=== PATIENT | female | born 1980 | race Caucasian/White ===

== ENCOUNTER 2017-02-15 01:42 | Emergency (ER) | payer OTHER ==
--- NOTE | 2017-02-15 02:32 | PDOC ---
History of Present Illness - General Chief Complaint: Bite Stated Complaint: BITE Time Seen by Provider: 02/15/17 02:22 History Source: Patient - History of Present Illness Initial Comments: 02/15/17 02:37 36 year old female with insect bite to right shoulder at 10 pm prior to arrivakl. patient reports feeling itchy at times. + redness minimal tenderness no Pmhx Past History - Travel Traveled outside of the country in the last 30 days: Yes Close contact w/someone who was outside of country & ill: No - Past Medical History Allergies/Adverse Reactions: Allergies Allergy/AdvReac Type Severity Reaction Status Date / Time No Known Drug Allergies Allergy Verified 02/15/17 02:18 Home Medications: Ambulatory Orders Ibuprofen [Motrin -] 400 mg PO PRN PRN 08/28/14 Hydrocortisone 1% Ointment [Hytone 1% Ointment -] 1 applic TP BID #1 tube Anemia: No Asthma: No Cancer: No Cardiac Disorders: No CVA: No COPD: No CHF: No Dementia: No Diabetes: No GI Disorders: No Disorders: No HTN: No Hypercholesterolemia: No Liver Disease: No Suicide Attempt (Hx): No Seizures: No Thyroid Disease: No - Surgical History Abdominal Surgery: No Appendectomy: No Cardiac Surgery: No Cholecystectomy: No Lung Surgery: No Neurologic Surgery: No Orthopedic Surgery: No - Psycho/Social/Smoking Cessation Hx Suicidal Ideation: No Smoking Status: No Smoking History: Never smoked Have you smoked in the past 12 months: No Number of Cigarettes Smoked Daily: 0 Information on smoking cessation initiated: No Hx Alcohol Use: No Drug/Substance Use Hx: No Substance Use Type: None Hx Substance Use Treatment: No Review of Systems - Review of Systems Able to Perform ROS?: Yes Is the patient limited Hebrew proficient: No Integumentary: Yes: Other (insect bite) *Physical Exam - Vital Signs Last Vital Signs Temp Pulse Resp BP Pulse Ox 98.6 F 70 14 114/79 100 02/15/17 02:20 02/15/17 02:20 02/15/17 02:20 02/15/17 02:20 02/15/17 02:20 - Physical Exam General Appearance: Yes: Appropriately Dressed Respiratory/Chest: negative: Chest Tender, Lungs Clear, Normal Breath Sounds, Respiratory Distress, Accessory Muscle Use, Labored Respiration, Rapid RR, Decreased Breath Sounds, Paradoxal Breathing, Crackles, Rales, Rhonchi, Stridor , Wheezing, Hyperresonant, Dullness, Plerual Rub, Other Extremity: positive: Normal Capillary Refill, Normal Inspection, Normal Range of Motion Integumentary: positive: Erythema (right shoulder) Neurologic: positive: Fully Oriented, Alert, Normal Mood/Affect Progress Note - Progress Note Progress Note: insect bite P: hydrocortisone *DC/Admit/Observation/Transfer Diagnosis at time of Disposition: Insect bite of right shoulder with local reaction Qualifiers: Encounter type: initial encounter Qualified Code(s): S40.261A - Insect bite ( nonvenomous) of right shoulder, initial encounter; W57.XXXA - Bitten or stung by nonvenomous insect and other nonvenomous arthropods, initial encounter - Discharge Dispostion Disposition: HOME - Prescriptions Prescriptions: Hydrocortisone 1% Ointment [Hytone 1% Ointment -] 1 applic TP BID #1 tube - Patient Instructions Printed Discharge Instructions: How to Care for an Insect Bite or Sting Additional Instructions: apply hydrocortisone cream as prescribe. look for signs of increased pain, redness, pus drainage. follow up with [facility] for a wound check
[2017-02-15 02:33] VITALS: BP 114/79; PULSE 70; TEMP 98.6; BMI 27.3
== END 2017-02-15 02:59 | disposition home or self-care (01) ==
LOC: JER 01:42
DX: S40.261A Insect bite (nonvenomous) of right shoulder, initial encounter (principal); L08.9 Local infection of the skin and subcutaneous tissue, unspecified; W57.XXXA Bitten or stung by nonvenomous insect and other nonvenomous arthropods, initial encounter; Y93.89 Activity, other specified; Y92.89 Other specified places as the place of occurrence of the external cause
CPT/HCPCS: 99281-25

== ENCOUNTER 2019-06-05 20:26 | Emergency (ER) | payer OTHER ==
[2019-06-05 21:16] VITALS: TEMP 98.2; BMI 29.2
--- NOTE | 2019-06-05 21:30 | PDOC ---
History of Present Illness - General Chief Complaint: Chest Pain Stated Complaint: CHEST PAIN Time Seen by Provider: 06/05/19 21:22 History Source: Patient Exam Limitations: No Limitations - History of Present Illness Initial Comments: Pt is a 38 yo F, with PMH of migraines, who is presenting via car from [facility] for concern of possible PE (elevated D-dimer). Pt states she had chest discomfort which woke her from sleep last night at 2 am. Pt thought it was reflux and took PO antacids with minimal relief. Pt states the pain is substernal, does not radiate, not associated with vomiting or diaphoresis, and is worsened with deep breaths and sitting forward. 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 Pt with no recent travel, surgery, or estrogen use. Pt denies any fevers/chills, headache, vision changes, cough, congestion, syncope, palpitations, SOB, nausea/vomiting, abdominal pain, urinary symptoms, diarrhea/ constipation, or leg swelling. Allergies: fluconazole PCP: Dr. Alas Social: Pt denies any cigarette, alcohol, or drug use. Pt denies any recent travel or sick contacts. Surgical: , hysterectomy (2010) Family: no relevant history. 06/06/19 04:51 06/06/19 04:58 Past History - Travel Traveled outside of the country in the last 30 days: No Close contact w/someone who was outside of country & ill: No - Past Medical History Allergies/Adverse Reactions: Allergies Allergy/AdvReac Type Severity Reaction Status Date / Time fluconazole [From Diflucan] Allergy Unknown Verified 06/05/19 21:17 Home Medications: Ambulatory Orders Ibuprofen [Motrin -] 400 mg PO PRN PRN 08/28/14 Hydrocortisone 1% Ointment [Hytone 1% Ointment -] 1 applic TP BID #1 tube Anemia: No Asthma: No Cancer: No Cardiac Disorders: No CVA: No COPD: No CHF: No Dementia: No Diabetes: No GI Disorders: No Disorders: No HTN: No Hypercholesterolemia: No Liver Disease: No Seizures: No Thyroid Disease: No - Surgical History Abdominal Surgery: No Appendectomy: No Cardiac Surgery: No Cholecystectomy: No Lung Surgery: No Neurologic Surgery: No Orthopedic Surgery: No - Immunization History Immunization Up to Date: Yes - Psycho Social/Smoking Cessation Hx Smoking Status: No Smoking History: Never smoked Have you smoked in the past 12 months: No Number of Cigarettes Smoked Daily: 0 Information on smoking cessation initiated: No Hx Alcohol Use: No Drug/Substance Use Hx: No Substance Use Type: None Hx Substance Use Treatment: No Cardiac Specific PMH - Complaint Specific PMHX Abdominal Aortic Aneurysm: No Angina: No Cardiac Arrhythmia: No Cardiac Stent: No GERD: No Myocardial Infarction: No Pacemaker: No Pulmonary Embolus: No Valvular Heart Disease: No Peripheral Vascular Disease: No Review of Systems - Review of Systems Able to Perform ROS?: Yes Is the patient limited Persian proficient: No Constitutional: Yes: Weight Stable. No: Chills, Diaphoresis, Fever, Loss of Appetite, Malaise, Weakness HEENTM: No: Recent change in vision, Nose Congestion, Throat Pain, Throat Swelling, Difficulty Swallowing Respiratory: No: Cough, Orthopnea, Shortness of Breath, Wheezing, Hemoptysis Cardiac (ROS): Yes: Chest Pain. No: Edema, Irregular Heart Rate, Lightheadedness, Palpitations, Syncope, Chest Tightness ABD/GI: No: Constipated, Diarrhea, Nausea, Poor Appetite, Poor Fluid Intake, Vomiting : No: Burning, Dysuria, Frequency, Pain, Urgency Musculoskeletal: No: Back Pain, Muscle Pain, Muscle Weakness Integumentary: No: Rash Neurological: No: Headache, Numbness, Weakness, Unsteady Gait, Dizziness Psychiatric: No: Sleep Pattern Change, Change in Appetite Endocrine: No: Increased Urine, Change in Weight Hematologic/Lymphatic: No: Anemia, Blood Clots, Easy Bleeding, Easy Bruising All Other Systems: Reviewed and Negative *Physical Exam - Vital Signs Last Vital Signs Temp Pulse Resp BP Pulse Ox 98.2 F 79 16 111/66 98 06/06/19 00:59 06/06/19 00:59 06/06/19 00:59 06/06/19 00:59 06/06/19 00:59 - Physical Exam Comments: Vitals stable, pt afebrile. Pt in NAD, normal body habitus. Pt alert and oriented x3. 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 No midline spinal tenderness, step-offs, or crepitus. Head normocephalic, atraumatic. Eyes PERRLA, EOMI. Oropharynx without erythema or exudates, no LAD b/l. No nasal congestion. Hearing intact. Clear heart sounds, S1/S2, no JVD, b/l pedal edema, or heart murmur. Clear lung sounds, no respiratory distress, wheezes, crackles, or accessory muscle use. No reproducible chest wall TTP. No abdominal or CVA tenderness to palpation, no rebound, no guarding. Abdomen soft, non-distended, and with normoactive bowel sounds. Ecchymosis to b/l LE posterior calfs. No significant TTP or edema. Skin without jaundice or rash. 06/06/19 05:30 ED Treatment Course - LABORATORY CBC & Chemistry Diagram: 06/05/19 22:00 06/05/19 22:00 - ADDITIONAL ORDERS Additional order review: Laboratory Results 06/05/19 06/05/19 06/05/19 22:10 22:10 22:00 PT with INR INR PTT (Actin FS) D-Dimer 648 H Sodium Potassium Chloride Carbon Dioxide Anion Gap BUN Creatinine Est GFR (CKD-EPI)AfAm Est GFR (CKD-EPI)NonAf Random Glucose Calcium Total Bilirubin AST ALT Alkaline Phosphatase Troponin I Total Protein Albumin Serum , Qual Urine Color Yellow Urine Appearance Clear Urine pH 7.0 Ur Specific [place] 1.020 Urine Protein Negative Urine Glucose (UA) Negative Urine Ketones Negative Urine Blood Trace Urine Nitrite Negative Urine Bilirubin Negative Urine Urobilinogen 1.0 Ur Leukocyte Esterase Negative Urine WBC (Auto) 1 Urine RBC (Auto) 10 Urine Casts (Auto) 1 U Epithel Cells (Auto) 1.6 Urine Bacteria (Auto) 15.6 Urine HCG, Qual Negative 06/05/19 06/05/19 06/05/19 22:00 22:00 22:00 PT with INR 12.60 INR 1.07 PTT (Actin FS) D-Dimer Sodium Potassium Chloride Carbon Dioxide Anion Gap BUN Creatinine Est GFR (CKD-EPI)AfAm Est GFR (CKD-EPI)NonAf Random Glucose Calcium Total Bilirubin AST ALT Alkaline Phosphatase Troponin I < 0.02 Total Protein Albumin Serum , Qual Negative Urine Color Urine Appearance Urine pH Ur Specific [place] Urine Protein Urine Glucose (UA) Urine Ketones Urine Blood Urine Nitrite Urine Bilirubin Urine Urobilinogen Ur Leukocyte Esterase Urine WBC (Auto) Urine RBC (Auto) Urine Casts (Auto) U Epithel Cells (Auto) Urine Bacteria (Auto) Urine HCG, Qual 06/05/19 06/05/19 22:00 22:00 PT with INR INR PTT (Actin FS) 31.0 D-Dimer Sodium 138 Potassium 4.0 Chloride 108 H Carbon Dioxide 26 Anion Gap 4 L BUN 15.0 Creatinine 0.7 Est GFR (CKD-EPI)AfAm 127.39 Est GFR (CKD-EPI)NonAf 109.91 Random Glucose 99 Calcium 8.9 Total Bilirubin 0.7 AST 10 L ALT 18 Alkaline Phosphatase 45 Troponin I Total Protein 6.9 Albumin 4.0 Serum , Qual Urine Color Urine Appearance Urine pH Ur Specific [place] Urine Protein Urine Glucose (UA) Urine Ketones Urine Blood Urine Nitrite Urine Bilirubin Urine Urobilinogen Ur Leukocyte Esterase Urine WBC (Auto) Urine RBC (Auto) Urine Casts (Auto) U Epithel Cells (Auto) Urine Bacteria (Auto) Urine HCG, Qual 06/05/19 22:00 RBC 4.84 MCV 82.6 MCHC 34.2 RDW 13.8 MPV 8.8 Neutrophils % 65.5 D Lymphocytes % 23.6 D Monocytes % 9.6 Eosinophils % 0.5 Basophils % 0.8 - RADIOLOGY Radiology Studies Ordered: Category Date Time Status CHEST CTA [CT] Stat CT Scan 06/06/19 00:01 Taken - Medications Given in the ED: ED Medications Discontinued Medications Generic Name Dose Route Start Last Admin Trade Name Freq PRN Reason Stop Dose Admin Acetaminophen 1,000 mg 06/05/19 21:40 06/05/19 22:35 Ofirmev Injection - IVPB 06/05/19 21:41 1,000 mg ONCE ONE Administration Medical Decision Making - Medical Decision Making Pt was seen at bedside, also will be seen by attending Dr. Laguna. Pt presenting with pleuritic chest pain, with elevated D-dimer from . Will evaluate for ACS, infection, pericarditis, PE. Provided 1 g IV ofirmev for improvement of discomfort. Will continue to reassess pt and monitor for symptomatic improvement. ECG: NSR, intervals WNL (HR 89, FL 134, QRS 78, QTc 430). TWI III, aVF, with generally low voltage; no significant ST segment changes. No significant changes from prior ECG (08/28/2014). 06/06/19 05:33 CBC and CMP WNL Trop <.02 test negative Elevated D-dimer -- will obtain CTA to r/o PE CTA with no evidence of PE, aneursym. Pt can be d/c to home with PCP f/u. Pt states pain improved with tylenol. Strict return precautions with pt understanding. 06/06/19 05:36 Discharge - Discharge Information Problems reviewed: Yes Clinical Impression/Diagnosis: Chest pain Qualifiers: Chest pain type: pleurodynia Qualified Code(s): R07.81 - Pleurodynia Condition: Good Disposition: HOME - Admission No - Follow up/Referral Referrals: Inez Traore MD [Primary Care Provider] - - Patient Discharge Instructions Patient Printed Discharge Instructions: DI for Atypical Chest Pain Additional Instructions: You were seen in the ER today for chest pain. The results of your labs and imaging today did not show any signs of infection or clot. Please follow-up with your primary care doctor within 1-2 days to discuss your visit and make sure your symptoms have improved. Please return to the ER if you have any worsening pain, development of fevers or chills, loss of consciousness, inability to tolerate food or fluids, or any other concerns. You can take tylenol or motrin every 4-6 hours as needed for pain. - Post Discharge Activity
[2019-06-05] MEDS ORDERED: ACETAMINOPHEN 1000 MG/100 ML VIAL (NON FORMULARY) IVPB ONE (21:40)
--- NOTE | 2019-06-05 21:40 | PDOC ---
Documentation entered by Louis Sims SCRIBE, acting as scribe for Jeny Laguna MD. Jeny Laguna MD: This documentation has been prepared by the Levi aparicio Daniel, SCRIBE, under my direction and personally reviewed by me in its entirety. I confirm that the documentation accurately reflects all work, treatment, procedures, and medical decision making performed by me. Attending Attestation - Resident Resident Name: Rosemarie Banerjee - ED Attending Attestation I have performed the following: I have examined & evaluated the patient, The case was reviewed & discussed with the resident, I agree w/resident's findings & plan, Exceptions are as noted - HPI HPI: 06/05/19 22:03 The patient is a 38 year old female with a past medical history of migraines here today for evaluation of chest pain. The patient reports that her chest pain began last night, woke her from sleep, and notes that it is worse with deep breaths. She reports going to an urgent care today who told her that her D- dimer was elevated and sent her to the ER for evaluation. Patient denies headache, lightheadedness. Denies fever, chills. Denies shortness of breath. Denies nausea, vomiting, diarrhea, abdominal pain. Allergies: fluconazole Surgical history: partial hysterectomy, PCP: Inez Nielsen - Physicial Exam PE: 06/05/19 23:45 wnwd 38 yo female with c/o chest pain head ncat neck supple lungs cta b/l cvs [id number] abd nontender extremities no edema skin warm and dry no cva tenderness neuro axox3,ambulatory psych appropriate - Medical Decision Making 06/05/19 22:00 38-year-old female presents presents because she had chest pain and went to the urgent care center who told her she may have a pulmonary embolus need to be seen in the emergency department Past medical history of migraines HPI: She developed pleuritic chest pain that woke her from sleep Past surgical history partial hysterectomy for fibroid bleeding 06/05/19 23:47 d dimer 638 cta chest 06/06/19 00:58 CTA of the chest results No pulmonary embolus, no aortic dissection or aneurysm, no pneumonia or pleural effusions
[2019-06-05 22:13] LABS: BASO % 0.8 % (0-2.0); EOS % 0.5 % (0-4.5); HEMOGLOBIN 13.7 GM/dL (10.7-15.3); LYMPH % 23.6 % (8-40); MCH 28.2 pg (25.7-33.7); MCHC 34.2 g/dl (32.0-36.0); MEAN CELL VOLUME 82.6 fl (80-96); MEAN PLT VOLUME 8.8 fl (7.5-11.1); MONO % 9.6 % (3.8-10.2); NEUT % 65.5 % (42.8-82.8); PLATELET COUNT 168 K/MM3 (134-434); RBC 4.84 M/mm3 (3.60-5.2); RDW 13.8 % (11.6-15.6); WHITE BLOOD COUNT 6.1 K/mm3 (4.0-10.0)
[2019-06-05 22:25] LABS: INR 1.07 (0.83-1.09); PROTHROMBIN TIME (PATIENT) 12.6 SEC (9.7-13.0)
[2019-06-05] MEDS ORDERED: ACETAMINOPHEN INJECTION 100 ML IVPB ONE (22:28)
[2019-06-05 22:39] LABS: BILIRUBIN,TOTAL 0.7 mg/dL (0.2-1); CALCIUM 8.9 mg/dL (8.5-10.1); CREATININE 0.7 mg/dL (0.55-1.3); TOT PROT 6.9 g/dl (6.4-8.2)
[2019-06-05 22:52] LABS: EPI CELLS 1.6 /HPF (0-5/HPF); HYALINE CASTS 1 /lpf (0-8); URINE APPEARANCE CLEAR; URINE BACTERIA 15.6 /hpf (NEGATIVE); URINE BILIRUBIN NEGATIVE (NEGATIVE); URINE COLOR YELLOW; URINE GLUCOSE (UA) NEGATIVE (NEGATIVE); URINE KETONE NEGATIVE (NEGATIVE); URINE LEUK ESTERASE NEGATIVE (NEGATIVE); URINE NITRITE NEGATIVE (NEGATIVE); URINE PROTEIN NEGATIVE (NEGATIVE); URINE RBC 10 /hpf (0-4); URINE WBC 1 /hpf (0-5)
[2019-06-06 01:00] VITALS: BP 111/66; PULSE 79
== END 2019-06-06 01:19 | disposition home or self-care (01) ==
LOC: JER 20:26
PROC: 3E033NZ Introduction of Analgesics, Hypnotics, Sedatives into Peripheral Vein, Percutaneous Approach (ICD-10-PCS; principal; 2019-06-05)
DX: R07.81 Pleurodynia (principal); Z88.8 Allergy status to other drugs, medicaments and biological substances
CPT/HCPCS: 36415; 71275-TC; 80053; 81003; 84484; 84703; 85025; 85379; 85610; 85730; 99284-25; J0131; Q9967